=== PATIENT | male | born 1970 | race Caucasian/White ===

== ENCOUNTER 2017-02-06 11:19 | Emergency (ER) | payer OTHER ==
[2017-02-06 11:28] VITALS: TEMP 97.7
--- NOTE | 2017-02-06 11:28 | CPEKG ---
Heart Rate: 79 RR Interval: 759 P-R Interval: 140 QRSD Interval: 100 QT Interval: 380 QTC Interval: 436 P [place]: -21 QRS [place]: 55 T Wave [place]: 22 EKG Severity - NORMAL ECG - EKG Impression: SINUS RHYTHM Electronically Signed By: Alysia Cedillo 06-Feb-2017 21:37:26
[2017-02-06] MEDS ORDERED: NS 500 ML IV ONE (11:35)
--- NOTE | 2017-02-06 11:43 | CPEKG ---
Heart Rate: 75 RR Interval: 800 P-R Interval: 140 QRSD Interval: 98 QT Interval: 392 QTC Interval: 438 P [place]: -12 QRS [place]: 57 T Wave [place]: 19 EKG Severity - NORMAL ECG - EKG Impression: SINUS RHYTHM Electronically Signed By: Alysia Cedillo 06-Feb-2017 21:34:11
[2017-02-06 11:44] LABS: % IMMATURE GRANULYOCYTES 0.3 % (0.0-1.1); ABSOLUTE IMMATURE GRANULOCYTES 0.02 10^3/uL (0.00-0.10); ABSOLUTE NRBC COUNT 0.02 10^3/uL (0-0.01); ADD DIFF? NO; ADD MORPH? NO; ADD SCAN? NO; ATYPICAL LYMPHOCYTE FLAG 10 (0-99); FRAGMENT RBC FLAG 0 (0-99); HEMATOCRIT 49.2 % (40.0-51.0); HEMOGLOBIN 17.7 g/dL (13.7-17.5); LEFT SHIFT FLG 0 (0-99); LIPEMIA HEMOLYSIS FLAG 90 (0-99); MEAN CELL HEMOGLOBIN 31.4 pg (27.9-34.1); MEAN CELL VOLUME 87.4 fL (81.5-99.8); MEAN PLATELET VOLUME 10.4 fL (8.7-11.7); NRBC-AUTO% 0.3 % (0.0-0.2); PLATELET CLUMPS FLAG 0 (0-99); PLATELET COUNT 245 10^3/uL (150-400); RED BLOOD CELL COUNT 5.63 10^6/uL (4.40-6.38); RED CELL DISTRIBUTION WIDTH 13.7 % (11.5-15.2)
[2017-02-06 11:53] LABS: CALCIUM 9.3 mg/dL (8.5-10.4); CARBON DIOXIDE 24 mEq/l (22-31); CHLORIDE 105 mEq/L (97-110); CREATININE 1.2 mg/dL (0.7-1.3); GLOMERULAR FILTRATION RATE > 60; GLUCOSE 100 mg/dL (70-100); SODIUM 142 mEq/L (134-144)
[2017-02-06 11:58] LABS: ANION GAP 13 mEq/L (8-16); POTASSIUM 3.8 mEq/L (3.5-5.2)
[2017-02-06 12:04] LABS: TROPONIN I < 0.012 ng/mL (0-0.034)
[2017-02-06] MEDS ORDERED: LORazepam 2 MG/ML INJ IVP ONE (12:59)
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
[2017-02-06 14:21] VITALS: BP 165/91; PULSE 76; RESP 16; O2SAT 94
== END 2017-02-06 14:21 | disposition home or self-care (01) ==
DX: R20.2 Paresthesia of skin (principal); E86.9 Volume depletion, unspecified
CPT/HCPCS: 96374; J2060